=== PATIENT | female | born 1970 | race African-American/Black ===

== ENCOUNTER 2017-12-06 08:11 | Emergency (ER) | payer MEDICARE, MEDICAID ==
[~2017-12-06] VITALS: Ht 160 cm; Wt 73.9 kg
[2017-12-06] MEDS ORDERED: KETOROLAC TROMETH 60MG/2ML VIAL IM ONE (09:30)
[2017-12-06 12:00] VITALS: BP 114/97
== END 2017-12-06 12:11 | disposition home or self-care (01) ==
LOC: ER 08:11
DX: L02.214 Cutaneous abscess of groin (principal); Z88.0 Allergy status to penicillin; Z88.6 Allergy status to analgesic agent
CPT/HCPCS: 10060; 76856; 96372; 99284; J1885; J7030